=== PATIENT | male | born 1965 | race Caucasian/White ===

== ENCOUNTER 2020-12-25 23:00 | Emergency (ER) | payer OTHER ==
[2020-12-26] MEDS ORDERED: LODINE CAP 300300 MG PO (02:08)
== END 2020-12-26 02:32 | disposition home or self-care (01) ==
LOC: ER1 23:00
DX: S52.092A Other fracture of upper end of left ulna, initial encounter for closed fracture (principal); W00.0XXA Fall on same level due to ice and snow, initial encounter; Y92.89 Other specified places as the place of occurrence of the external cause; Y99.0 Civilian activity done for income or pay
CPT/HCPCS: 73080; 99283

== ENCOUNTER 2021-04-13 15:11 | Emergency (ER) | payer OTHER ==
[~2021-04-13 15:11] MED LIST: LODINE CAP 300300 MG PO
[2021-04-13] MEDS ORDERED: BACTROBAN OINT22 GM EXT (16:26)
== END 2021-04-13 16:46 | disposition home or self-care (01) ==
LOC: ER1 15:11
DX: M79.89 Other specified soft tissue disorders (principal); M25.072 Hemarthrosis, left ankle
CPT/HCPCS: 99283

== ENCOUNTER 2021-04-29 15:59 | Emergency (ER) | payer OTHER ==
[~2021-04-29 15:59] MED LIST changes: +BACTROBAN OINT22 GM EXT
[2021-04-29] MEDS ORDERED: MEDROL DOSEPAK 24 MG PO (16:24)
[2021-04-29] MEDS ORDERED: Voltaren Gel 1 % TOP (16:24)
== END 2021-04-29 16:34 | disposition home or self-care (01) ==
LOC: ER1 15:59
DX: M77.01 Medial epicondylitis, right elbow (principal)
CPT/HCPCS: 99283

== ENCOUNTER 2021-05-10 23:42 | Emergency (ER) | payer OTHER ==
[~2021-05-10 23:42] MED LIST changes: +MEDROL DOSEPAK 24 MG PO; +Voltaren Gel 1 % TOP
[2021-05-11 01:14] LABS: HEMOGLOBIN 14.6 gm/dl (14.0-17.5); RED BLOOD COUNT 4.62 M/UL (4.20-5.50); WHITE BLOOD COUNT 8.8 K/UL (4.5-11.0)
[2021-05-11 01:25] LABS: BUN/CREATININE RATIO 13 (0-10)
[2021-05-11] MEDS ORDERED: BENTYL 20MG TAB20 MG PO (02:21)
[2021-05-11] MEDS ORDERED: ZOFRAN ODT 4 MG4 MG PO (02:21)
== END 2021-05-11 02:50 | disposition home or self-care (01) ==
LOC: ER1 23:42
PROVIDERS: Physician Assistant
DX: R10.9 Unspecified abdominal pain (principal)
CPT/HCPCS: 80053; 81001; 83690; 85025; 87086; 96374; 96375; 99284; J1885; J2405; Q9967

== ENCOUNTER → 2021-05-28 | Outpatient (CLI) | payer OTHER ==
[~2021-05-28] MED LIST changes: +BENTYL 20MG TAB20 MG PO; +ZOFRAN ODT 4 MG4 MG PO
[2021-05-28 13:08] LABS: HEMOGLOBIN 14.5 gm/dl (14.0-17.5); RED BLOOD COUNT 4.6 M/UL (4.20-5.50); WHITE BLOOD COUNT 5.9 K/UL (4.5-11.0)
[2021-05-28 13:39] LABS: BUN/CREATININE RATIO 12 (0-10)
== END ==
LOC: LAB 12:14
PROVIDERS: Nurse Practitioner Family
DX: Z13.1 Encounter for screening for diabetes mellitus (principal); R31.9 Hematuria, unspecified; R53.82 Chronic fatigue, unspecified; Z12.5 Encounter for screening for malignant neoplasm of prostate; Z13.220 Encounter for screening for lipoid disorders
CPT/HCPCS: 36415; 80053; 80061; 81001; 83036; 84436; 84443; 84480; 85025

== ENCOUNTER → 2021-05-30 | Outpatient (CLI) | payer OTHER | LOC: EXRD 13:52 | DX: R23.0 Cyanosis (principal); I99.9 Unspecified disorder of circulatory system | CPT/HCPCS: 93925; 93970 ==

== ENCOUNTER 2021-05-31 19:50 | Emergency (ER) | payer OTHER ==
[2021-05-31 20:36] LABS: HEMOGLOBIN 14.6 gm/dl (14.0-17.5); RED BLOOD COUNT 4.63 M/UL (4.20-5.50); WHITE BLOOD COUNT 8.3 K/UL (4.5-11.0)
[2021-05-31 21:05] LABS: BUN/CREATININE RATIO 12 (0-10)
== END 2021-05-31 21:26 | disposition home or self-care (01) ==
LOC: ER1 19:50
PROVIDERS: Physician Assistant
DX: R00.2 Palpitations (principal)
CPT/HCPCS: 71045; 80053; 82550; 82553; 83874; 84484; 85025; 93005; 99285

== ENCOUNTER → 2021-06-13 | Outpatient (CLI) | payer OTHER | LOC: LAB 10:27 | DX: R31.9 Hematuria, unspecified (principal); Z12.5 Encounter for screening for malignant neoplasm of prostate | CPT/HCPCS: 36415; 84153 ==

== ENCOUNTER → 2021-07-11 | Outpatient (CLI) | payer OTHER | LOC: HEART 5 08:07 | DX: I48.0 Paroxysmal atrial fibrillation (principal); I11.0 Hypertensive heart disease with heart failure; I50.9 Heart failure, unspecified; I25.5 Ischemic cardiomyopathy; R00.2 Palpitations; R60.0 Localized edema; E78.49 Other hyperlipidemia; R07.9 Chest pain, unspecified; R06.02 Shortness of breath | CPT/HCPCS: 78452; A9502; J2785 ==

== ENCOUNTER → 2021-09-26 | Outpatient (CLI) | payer OTHER ==
[2021-09-26 08:36] LABS: HEMOGLOBIN 13.2 gm/dl (14.0-17.5); RED BLOOD COUNT 4.2 M/UL (4.20-5.50); WHITE BLOOD COUNT 7.2 K/UL (4.5-11.0)
[2021-09-26 09:01] LABS: BUN/CREATININE RATIO 16 (0-10)
[2021-09-27 08:14] LABS: VITAMIN D, 25-HYDROXY 38.4 ng/mL (30.0-100.0)
[2021-09-27 10:14] LABS: THYROXINE (T4) 7.6 ug/dL (4.5-12.0)
== END ==
LOC: LAB 07:20
PROVIDERS: Nurse Practitioner Family
DX: I10 Essential (primary) hypertension (principal); R73.03 Prediabetes; R53.83 Other fatigue; R60.9 Edema, unspecified
CPT/HCPCS: 36415; 80053; 80061; 81001; 83036; 84436; 84443; 84480; 85025

== ENCOUNTER → 2022-01-03 | Outpatient (CLI) | payer BC ==
[2022-01-03 08:11] LABS: HEMOGLOBIN 13.1 gm/dl (14.0-17.5); RED BLOOD COUNT 4.24 M/UL (4.20-5.50)
[2022-01-03 08:34] LABS: BUN/CREATININE RATIO 10 (0-10)
[2022-01-04 08:14] LABS: VITAMIN D, 25-HYDROXY 27.3 ng/mL (30.0-100.0)
[2022-01-04 09:14] LABS: THYROXINE (T4) 8.1 ug/dL (4.5-12.0)
== END ==
LOC: LAB 06:08
PROVIDERS: Nurse Practitioner
DX: I10 Essential (primary) hypertension (principal); R73.03 Prediabetes; R53.83 Other fatigue; E56.9 Vitamin deficiency, unspecified; Z12.5 Encounter for screening for malignant neoplasm of prostate
CPT/HCPCS: 36415; 80053; 80061; 83036; 84153; 84436; 84443; 84480; 85025

== ENCOUNTER → 2022-01-24 | Outpatient (CLI) | payer BC ==
[2022-01-25 08:14] LABS: THYROXINE (T4) 8.4 ug/dL (4.5-12.0)
== END ==
LOC: LAB 06:25
PROVIDERS: Nurse Practitioner Family
DX: E03.9 Hypothyroidism, unspecified (principal)
CPT/HCPCS: 36415; 84436; 84443; 84480

== ENCOUNTER → 2022-02-26 | Outpatient (CLI) | payer BC | LOC: KOH-I 09:31 | DX: M25.561 Pain in right knee (principal); M17.11 Unilateral primary osteoarthritis, right knee; S83.241A Other tear of medial meniscus, current injury, right knee, initial encounter; M76.51 Patellar tendinitis, right knee | CPT/HCPCS: 73721 ==